=== PATIENT | female | born 1960 | race Caucasian/White ===

== ENCOUNTER 2023-04-27 08:09 | Emergency (ER) | payer MEDICARE ==
[2023-04-27 08:29] VITALS: BP 142/86
--- NOTE | 2023-04-27 08:59 | XRAY Report ---
PROCEDURE: Wrist 4 View RT INDICATIONS: Trauma. Fall on outstretched hand. Pain in scaphoid region. TECHNIQUE: 4 views of the wrist were acquired. COMPARISON: None. FINDINGS: Bones: No fractures or dislocations. No suspicious bony lesions. Soft tissues: No suspicious soft tissue calcifications or masses. IMPRESSION: No acute bony abnormality. If there is anatomic snuff box tenderness, consider wrist immobilization a nd repeat radiographs in 10-14 days or cross-sectional imaging now. If pain persists with conservativ e management, consider repeat radiographs in 10-14 days or cross-sectional imaging. Reviewed by: Rafael Ballesteros on 04/27/2023 8:57 AM PDT Approved by: Rafael Ballesteros on 04/27/2023 8:57 AM PDT Station ID: [id number]
--- NOTE | 2023-04-27 09:09 | ED Physician Documentation ---
PD HPI UPPER EXT INJURY - Stated complaint Stated Complaint: RT WRIST INJ - Chief complaint Chief Complaint: Trauma Ext - History obtained from History obtained from: Patient - Additonal information Additional information: The patient comes to the emergency department chief complaint of right wrist pain after taking of ground-level fall yesterday. She states that she has had some swelling and pain and bruising over the radial aspect of the wrist. No other injuries or complaints. PD PAST MEDICAL HISTORY - Present Medications Home Medications: Ambulatory Orders Medication Instructions Recorded Confirmed PARoxetine [Paxil] 30 mg PO DAILY 04/27/23 04/27/23 - Allergies Allergies/Adverse Reactions: Allergies Allergy/AdvReac Type Severity Reaction Status Date / Time No Known Drug Allergies Allergy Verified 04/27/23 08:20 PD ED PE NORMAL - Vitals Vital signs reviewed: Yes - General General: Alert and oriented X 3, No acute distress, Well developed/nourished - HEENT HEENT: Atraumatic, PERRL, EOMI, Moist mucous membranes - Neck Neck: Supple, no meningeal sign - Cardiac Cardiac: Strong equal pulses - Respiratory Respiratory: No respiratory distress - Derm Derm: Warm and dry, Other (Contusion over flexor surface right wrist on radial aspect.) - Extremities Extremities: No deformity, Other (Mild localized edema over the radial aspect of the right wrist, with tenderness over the same area. No deformity. Mildly limited range of motion secondary to pain.) - Neuro Neuro: No motor deficit, No sensory deficit, Other (Otherwise grossly intact) - Psych Psych: Normal mood, Normal affect Results - Vitals Vitals: Vital Signs - 24 hr 04/27/23 08:21 Temperature 36.3 C L Heart Rate 69 Respiratory 16 Rate Blood Pressure 142/86 H O2 Saturation 96 Oxygen O2 Source Room air - Rads (name of study) Right wrist x-ray series Relevant Findings:: Final report received, See rad report (Negative) PD Medical Decision Making - ED course Complexity details: reviewed results, re-evaluated patient, considered differential, d/w patient ED course: The patient's right wrist x-ray series was negative, and I felt she had most likely sprained or bruised her wrist. We have discussed symptomatic management at home as well as the usual indications for return. Departure - Departure Disposition: 01 Home, Self Care Clinical Impression: Right wrist sprain Qualifiers: Encounter type: initial encounter Qualified Code(s): S63.501A - Unspecified sprain of right wrist, initial encounter Condition: Stable Instructions: ED Sprain Wrist Comments: Your x-rays look good. There is no evidence of a fracture at this time. Most likely you have this sprained and strained the soft tissues of the wrist. This may take a few weeks to heal, but overall, is expected to heal well on its own. Please follow-up with your primary care physician as needed.
== END 2023-04-27 09:26 | disposition home or self-care (01) ==
LOC: ED 08:09
DX: S63.501A Unspecified sprain of right wrist, initial encounter (principal); W01.0XXA Fall on same level from slipping, tripping and stumbling without subsequent striking against object, initial encounter; Y93.01 Activity, walking, marching and hiking
CPT/HCPCS: 99283